=== PATIENT | female | born 1970 | race Caucasian/White ===

== ENCOUNTER → 2016-03-31 | Outpatient (CLI) | payer BC ==
--- NOTE | 2016-04-01 08:01 | MM ---
Reason for exam: screening (asymptomatic). Last mammogram was performed 1 year and 11 months ago. History: Patient had first child at age 32. Physical Findings: A clinical breast exam by your physician is recommended on an annual basis and results should be correlated with mammographic findings. MG 3D Screening Mammo W/Cad Bilateral CC and MLO view(s) were taken. Prior study comparison: April 19, 2014, bilateral MG diagnostic mammo w CAD ISABELA. December 15, 2012, bilateral digital screening mammo w/CAD. The breast tissue is heterogeneously dense. This may lower the sensitivity of mammography. There is no discrete abnormality. No significant changes when compared with prior studies. ASSESSMENT: Negative, BI-RAD 1 RECOMMENDATION: Routine screening mammogram of both breasts in 1 year.
== END | disposition home or self-care (01) ==
LOC: RADMAMWWP 07:28
PROVIDERS: ATTEND Obstetrics & Gynecology
DX: Z12.31 Encounter for screening mammogram for malignant neoplasm of breast (principal)
CPT/HCPCS: 77063; G0202

== ENCOUNTER → 2016-10-29 | Outpatient (CLI) | payer BC ==
--- NOTE | 2016-10-29 09:32 | USB ---
Reason for exam: clinical finding. History: Patient had first child at age 32. Indicated problem(s): palpable abnormality in the right breast. US Breast RT Right breast ultrasound includes all four quadrants, the retroareolar region and axilla. Finding demonstrates a 5 x 4 x 5mm cystic lesion at nipple just upper lateral correlates with palpable. These results were verbally communicated with the patient and result sheet given to the patient on 10/29/16. ASSESSMENT: Benign, BI-RAD 2 RECOMMENDATION: Return to routine screening mammogram schedule for both breasts. Back on schedule.
== END | disposition home or self-care (01) ==
LOC: RADUSWWP 08:19
PROVIDERS: ATTEND Internal Medicine
DX: N63 Unspecified lump in breast (principal)

== ENCOUNTER → 2017-03-14 | Outpatient (CLI) | payer BC ==
[2017-03-14 09:40] LABS: Basophils % (A) 0 %; Eosinophils # (A) 0.1 k/uL (0-0.7); Eosinophils % (A) 2 %; HGB 12.5 gm/dL (11.4-16.0); Lymphocytes # (A) 1.5 k/uL (1.0-4.8); Lymphocytes % (A) 29 %; MCH 28.7 pg (25.0-35.0); MCHC 32.8 g/dL (31.0-37.0); MCV 87.5 fL (80.0-100.0); Monocytes # (A) 0.3 k/uL (0-1.0); Monocytes % (A) 5 %; Neutrophils % (A) 61 %; Platelet Count 313 k/uL (150-450); RBC 4.35 m/uL (3.80-5.40); RDW 13.3 % (11.5-15.5)
[2017-03-14 09:51] LABS: Appearance,Urine Clear (Clear); Bilirubin,Urine Negative (Negative); Blood,Urine Negative (Negative); Color,Urine Yellow; Glucose,Urine (UA) Negative (Negative); Ketones,Urine Negative (Negative); Leukocyte Esterase,Urine Negative (Negative); Nitrite,Urine Negative (Negative); PH, Urine 7.5 (5.0-8.0); Protein,Urine Trace (Negative); Specific Gravity,Urine 1.015 (1.001-1.035); Urobilinogen,Urine <2.0 mg/dL (<2.0)
[2017-03-14 09:54] LABS: ALT 24 U/L (9-52); AST 19 U/L (14-36); Albumin 4.3 g/dL (3.5-5.0); Alkaline Phosphatase 57 U/L (38-126); Anion Gap 10 mmol/L; Blood Urea Nitrogen 14 mg/dL (7-17); Calcium 9.7 mg/dL (8.4-10.2); Carbon Dioxide 29 mmol/L (22-30); Chloride 102 mmol/L (98-107); Cholesterol 213 mg/dL (<200); Creatine Kinase 50 U/L (30-135); Glucose 84 mg/dL (74-99); HDL Cholesterol 85 mg/dL (40-60); LDL Cholesterol,Calculated 114 mg/dL (0-99); Potassium 4.6 mmol/L (3.5-5.1); Sodium 141 mmol/L (137-145); Total Bilirubin 0.4 mg/dL (0.2-1.3); Total Protein 7.1 g/dL (6.3-8.2); Triglycerides 71 mg/dL (<150)
[2017-03-14 10:10] LABS: T4, Free (Free Thyroxine) 0.99 ng/dL (0.78-2.19)
[2017-03-14 16:57] LABS: Hemoglobin A1C 5.3 % (4.0-6.0)
== END | disposition home or self-care (01) ==
LOC: LABWHC1 09:05
PROVIDERS: ATTEND Internal Medicine
DX: K20.0 Eosinophilic esophagitis (principal); E78.00 Pure hypercholesterolemia, unspecified
CPT/HCPCS: 36415; 80053; 80061; 81003; 82550; 83036; 84439; 84443; 85025

== ENCOUNTER → 2017-05-23 | Outpatient (CLI) | payer BC ==
[2017-05-23 08:11] LABS: Appearance,Urine Cloudy (Clear); Bilirubin,Urine Negative (Negative); Blood,Urine Negative (Negative); Color,Urine Yellow; Glucose,Urine (UA) Negative (Negative); Ketones,Urine Negative (Negative); Leukocyte Esterase,Urine Negative (Negative); Mucus,Urine Few /hpf; Nitrite,Urine Negative (Negative); PH, Urine 5.5 (5.0-8.0); Protein,Urine Trace (Negative); Squamous Epithelial Cell,Urine 9 /hpf (0-4); Urobilinogen,Urine <2.0 mg/dL (<2.0); WBC,Urine 4 /hpf (0-5)
[2017-05-23 08:16] LABS: Basophils % (A) 0 %; Eosinophils # (A) 0.1 k/uL (0-0.7); Eosinophils % (A) 2 %; HCT 36.9 % (34.0-46.0); HGB 11.7 gm/dL (11.4-16.0); Hypochromasia Slight; Lymphocytes # (A) 1.7 k/uL (1.0-4.8); Lymphocytes % (A) 27 %; MCH 26.7 pg (25.0-35.0); MCHC 31.7 g/dL (31.0-37.0); MCV 84.3 fL (80.0-100.0); Mean Platelet Volume 7.5; Monocytes # (A) 0.3 k/uL (0-1.0); Monocytes % (A) 5 %; Neutrophils % (A) 65 %; Platelet Count 381 k/uL (150-450); RBC 4.37 m/uL (3.80-5.40); RDW 14.4 % (11.5-15.5); WBC 6.2 k/uL (3.8-10.6)
[2017-05-23 08:30] LABS: ALT 19 U/L (9-52); AST 16 U/L (14-36); Albumin 4.4 g/dL (3.5-5.0); Alkaline Phosphatase 53 U/L (38-126); Anion Gap 13 mmol/L; Blood Urea Nitrogen 16 mg/dL (7-17); Calcium 10.2 mg/dL (8.4-10.2); Carbon Dioxide 28 mmol/L (22-30); Chloride 103 mmol/L (98-107); Cholesterol 216 mg/dL (<200); Creatine Kinase 47 U/L (30-135); Glucose 87 mg/dL (74-99); HDL Cholesterol 87 mg/dL (40-60); LDL Cholesterol,Calculated 116 mg/dL (0-99); Potassium 4.8 mmol/L (3.5-5.1); Sodium 144 mmol/L (137-145); Total Bilirubin 0.7 mg/dL (0.2-1.3); Total Protein 7.4 g/dL (6.3-8.2); Triglycerides 65 mg/dL (<150)
[2017-05-23 08:45] LABS: T4, Free (Free Thyroxine) 0.78 ng/dL (0.78-2.19)
[2017-05-23 17:50] LABS: Hemoglobin A1C 5.2 % (4.0-6.0)
== END | disposition home or self-care (01) ==
LOC: LABWHC1 07:39
PROVIDERS: ATTEND Internal Medicine
DX: Z00.00 Encounter for general adult medical examination without abnormal findings (principal); K20.0 Eosinophilic esophagitis; E78.00 Pure hypercholesterolemia, unspecified
CPT/HCPCS: 36415; 80053; 80061; 81001; 82550; 83036; 84439; 84443; 85025

== ENCOUNTER → 2017-06-03 | Outpatient (CLI) | payer BC ==
--- NOTE | 2017-06-03 11:00 | MM ---
Reason for exam: additional evaluation requested from prior study. Last mammogram was performed 1 year and 2 months ago. History: Patient had first child at age 32. Physical Findings: Nurse Summary: 0.5 x 0.5cm nodule in the right breat at 6 o'clock and 9 o'clock (nurse ts). MG 3D Diag Mammo W/Cad ISABELA Bilateral CC and MLO view(s) were taken. Prior study comparison: March 31, 2016, bilateral MG 3d screening mammo w/cad. April 19, 2014, bilateral MG diagnostic mammo w CAD ISABELA. The breast tissue is extremely dense which could obscure a lesion on mammography. There is chronic nodularity in the right breast. Asymmetric breast tissue left breast near axilla, stable. There is no discrete abnormality. These results were verbally communicated with the patient and result sheet given to the patient on 06/03/17. ASSESSMENT: Incomplete: need additional imaging evaluation, BI-RAD 0 RECOMMENDATION: Ultrasound of the right breast. (palpable by nurse and prior abnormality)
--- NOTE | 2017-06-03 11:04 | USB ---
Reason for exam: additional evaluation requested from abnormal screening. History: Patient had first child at age 32. US Breast RT Right breast ultrasound includes all four quadrants, the retroareolar region and axilla. Finding demonstrates a 0.3 x 0.3 x 0.2cm oval, cystic lesion at 6 o'clock, a 0.3 x 0.8 x 0.4cm oval cystic cluster too small to characterize, septated cyst at 6 o'clock, ductal ectasia at 6 o'clock, a 0.3 x 0.3 x 0.2cm oval, cystic lesion at 8 o'clock, a 0.4 x 0.4 x 0.3cm oval, cystic lesion at 8:30, duct ectasia at 8:30, a 0.3 x 0.5 x 0.2cm oval, cystic lesion at 10 o'clock, a 0.5 x 0.5 x 0.4cm cystic lesion at 11 o'clock and ductal ectasia at the nipple. Fibrocystic change. These results were verbally communicated with the patient and result sheet given to the patient on 06/03/17. ASSESSMENT: Benign, BI-RAD 2 RECOMMENDATION: Follow-up diagnostic mammogram of both breasts in 1 year.
== END | disposition home or self-care (01) ==
LOC: RADMAMWWP 08:19
PROVIDERS: ATTEND Obstetrics & Gynecology
DX: R92.8 Other abnormal and inconclusive findings on diagnostic imaging of breast (principal); N60.09 Solitary cyst of unspecified breast
CPT/HCPCS: 77066; 76641; G0279

== ENCOUNTER → 2018-06-09 | Outpatient (CLI) | payer BC ==
--- NOTE | 2018-06-09 14:01 | MM ---
Reason for exam: additional evaluation requested from prior study. Last mammogram was performed 1 year ago. History: Patient had first child at age 32. Physical Findings: Nurse Summary: 1cm nodule in the right breast at 9 o'clock (nurse lawanda). MG 3D Diag Mammo W/Cad ISABELA Bilateral CC, MLO, and XCCL view(s) were taken. Prior study comparison: June 03, 2017, bilateral MG 3d diag mammo w/cad ISABELA. March 31, 2016, bilateral MG 3d screening mammo w/cad. The breast tissue is heterogeneously dense. This may lower the sensitivity of mammography. No significant new findings when compared with previous films. These results were verbally communicated with the patient and result sheet given to the patient on 06/09/18. ASSESSMENT: Benign, BI-RAD 2 RECOMMENDATION: Routine screening mammogram of both breasts in 1 year.
== END | disposition home or self-care (01) ==
LOC: RADMAMWWP 13:06
PROVIDERS: ATTEND Obstetrics & Gynecology
DX: R92.8 Other abnormal and inconclusive findings on diagnostic imaging of breast (principal)
CPT/HCPCS: 77062; 77066

== ENCOUNTER → 2018-09-22 | Outpatient (CLI) | payer BC ==
[2018-09-22 09:28] LABS: Amorphous Sediment,Urine Rare /hpf; Appearance,Urine Cloudy (Clear); Bacteria,Urine Rare /hpf; Bilirubin,Urine Negative (Negative); Blood,Urine Negative (Negative); Color,Urine Light Yellow; Glucose,Urine (UA) Negative (Negative); Ketones,Urine Negative (Negative); Leukocyte Esterase,Urine Negative (Negative); Mucus,Urine Rare /hpf; Nitrite,Urine Negative (Negative); PH, Urine 6.5 (5.0-8.0); Protein,Urine Negative (Negative); RBC,Urine 4 /hpf (0-5); Specific Gravity,Urine 1.014 (1.001-1.035); Squamous Epithelial Cell,Urine 5 /hpf (0-4); Urobilinogen,Urine <2.0 mg/dL (<2.0); WBC,Urine 2 /hpf (0-5)
[2018-09-22 09:29] LABS: Anisocytosis Slight; Basophils % (A) 0 %; Eosinophils # (A) 0.1 k/uL (0-0.7); Eosinophils % (A) 1 %; HCT 36.4 % (34.0-46.0); HGB 11.3 gm/dL (11.4-16.0); Hypochromasia Slight; Lymphocytes # (A) 1.4 k/uL (1.0-4.8); Lymphocytes % (A) 25 %; MCH 27.4 pg (25.0-35.0); MCHC 31.2 g/dL (31.0-37.0); MCV 87.9 fL (80.0-100.0); Mean Platelet Volume 7.7; Monocytes # (A) 0.3 k/uL (0-1.0); Monocytes % (A) 5 %; Neutrophils # (A) 3.8 k/uL (1.3-7.7); Neutrophils % (A) 67 %; Platelet Count 263 k/uL (150-450); RBC 4.14 m/uL (3.80-5.40); RDW 16.5 % (11.5-15.5); WBC 5.7 k/uL (3.8-10.6)
[2018-09-22 17:15] LABS: African American GFR (CKD) 100.3 (60.0-200.0); Albumin 4.6 g/dL (3.80-4.90); Albumin/Globulin Ratio 2.09 (1.60-3.17); Anion Gap 9.5 mmol/L (4.00-12.00); BUN/Creat Ratio 16.25 Ratio (12.00-20.00); Calcium 9.4 mg/dL (8.7-10.3); Carbon Dioxide 23.5 mmol/L (21.6-31.8); Globulin 2.2 g/dL (1.6-3.3); LDL Cholesterol,Calculated 108.4 mg/dL (0.0-131.0); Potassium 4.5 mmol/L (3.5-5.5); Total Bilirubin 1.1 mg/dL (0.2-1.2); Total Protein 6.8 g/dL (6.2-8.2); VLDL Calculation 13.6 mg/dL (5.00-40.00)
[2018-09-22 17:25] LABS: T4, Free (Free Thyroxine) 1.1 ng/dL (0.80-1.80)
[2018-09-22 21:43] LABS: Hemoglobin A1C 5.7 % (4.0-6.0)
== END | disposition home or self-care (01) ==
LOC: LABWHC1 08:48
PROVIDERS: ATTEND Internal Medicine
DX: E03.9 Hypothyroidism, unspecified (principal); I10 Essential (primary) hypertension
CPT/HCPCS: 36415; 80053; 80061; 81001; 83036; 84439; 84443; 85025

== ENCOUNTER → 2018-09-29 | Outpatient (CLI) | payer BC ==
--- NOTE | 2018-09-29 09:33 | BD ---
EXAMINATION TYPE: Axial Bone Density DATE OF EXAM: 09/29/2018 COMPARISON: NONE CLINICAL HISTORY: M 84.9 Height: 5 FT 3 1/2 IN Weight: 116 FRAX RISK QUESTIONS: Glucocorticoids (More than 3mos): YES (Ex: prednisone, prednisolone, methylprednisolone, dexamethasone, and hydrocortisone). Secondary Osteoporosis: RISK FACTORS HISTORY OF: Family History of Osteoporosis: YES Active: YES Postmenopausal woman: If Premenopausal, do you have irregular periods: Take estrogen and/or progesterone medications: SINCE JUNE 2018 ESTROGEN VAGINAL, TESTERONE CREAM MEDICATIONS: Prednisone or other steroids: YES How Lon YEARS Thyroid Medications: YES Which medication: LEVOTHYROXINE How Lon YEAR Additional Medications: LEVOTHYROXINE, LISINOPRIL, BYSTOLIC, PULMICORT, PREVACID, VALTREX Additional History: CHRONIC ESOPHAGITIS EXAM MEASUREMENTS: Bone mineral densitometry was performed using the [employer]. Bone mineral density as measured about the Lumbar spine is: ----- L1-L4(G/cm2): 1.211 T Score Values are as follows: ----- L2: 0.3 ----- L3: 0.2 ----- L4: 0.0 ----- L1-L4: 0.3 BASELINE Bone mineral density about the R hip (g/cm2): 1.106 Bone mineral density about the L hip (g/cm2): 1.104 T Score values are as follows: -----R Neck: 0.5 -----L Neck: 0.5 -----R Total: 0.8 -----L Total: 0.7 BASELINE IMPRESSION: Normal (Values between +1 and -1 indicate normal bone mass). Consider repeating this study in 5 year s or sooner if there is some new clinical indication. NOTE: T-SCORE=SD OF THE YOUNG ADULT MEAN.
== END | disposition home or self-care (01) ==
LOC: RADBDWWP 08:34
PROVIDERS: ATTEND Internal Medicine
DX: M85.9 Disorder of bone density and structure, unspecified (principal)
CPT/HCPCS: 77080

== ENCOUNTER → 2018-12-29 | Outpatient (CLI) | payer BC ==
--- NOTE | 2018-12-29 11:04 | US ---
EXAMINATION TYPE: US thyroid st tissue head/neck DATE OF EXAM: 12/29/2018 COMPARISON: NONE CLINICAL HISTORY: E03.9 Hypothyroidism. Hypothyroidism GLAND SIZE: Right Lobe: 4.3 x 1.2 x 1.2 cm Overall Parenchyma: homogenous Left Lobe: 3.7 x 0.9 x 1.1 cm Overall Parenchyma: homogeneous Isthmus Thickness: 0.2 cm NODULES RIGHT: # of nodules measured on right: 0 - sub-centimeter cystic area noted LEFT: # of nodules measured on left: 0 ISTHMUS: # of nodules measured in the isthmus: 0 Bilateral neck scanned, normal appearing lymph nodes right neck IMPRESSION: Upper limits of normal size of the nearly homogeneous thyroid gland other than a subcenti meter right thyroid lobe cyst.
== END | disposition home or self-care (01) ==
LOC: RADUSWWP 09:36
PROVIDERS: ATTEND Internal Medicine
DX: E04.1 Nontoxic single thyroid nodule (principal); E03.9 Hypothyroidism, unspecified
CPT/HCPCS: 76536

== ENCOUNTER → 2019-07-10 | Outpatient (CLI) | payer BC ==
--- NOTE | 2019-07-10 11:28 | MM ---
Reason for exam: clinical finding. Last mammogram was performed 1 year and 1 month ago. History: Patient had first child at age 32. Indicated problem(s): palpable abnormality in the right breast. Physical Findings: Nurse Summary: 1 x 1cm nodule in the right breast at 8 o'clock and 10 o'clock (nurse ts). MG 3D Diag Mammo W/Cad ISABELA Bilateral CC and MLO view(s) were taken. Prior study comparison: June 09, 2018, bilateral MG 3d diag mammo w/cad ISABELA. June 03, 2017, bilateral MG 3d diag mammo w/cad ISABELA. March 31, 2016, bilateral MG 3d screening mammo w/cad. The breast tissue is heterogeneously dense. This may lower the sensitivity of mammography. No significant new findings when compared with previous films. These results were verbally communicated with the patient and result sheet given to the patient on 07/10/19. ASSESSMENT: Incomplete: need additional imaging evaluation, BI-RAD 0 RECOMMENDATION: Ultrasound of the right breast.
--- NOTE | 2019-07-10 11:32 | USB ---
Reason for exam: clinical finding. History: Patient had first child at age 32. Indicated problem(s): palpable abnormality in the right breast. US Breast RT Technologist: Fabiana Bingham Right complete breast ultrasound includes all four quadrants, the retroareolar region and axilla. Finding demonstrates a 0.4 x 0.3 x 0.2cm oval, cystic lesion at 4 o'clock, a 0.2 x 0.3 x 0.2cm circular lesion too small to characterize at 7 o'clock, a 0.4 x 0.4 x 0.4cm circular, cystic lesion at 8 o'clock, a 0.6 x 0.6 x 0.4cm hypoechoic lesion at 8 o'clock, biopsy recommended and a 0.4 x 0.4 x 0.4cm circular lesion with interval echoes at 12 o'clock, biopsy/aspiration recommended. These results were verbally communicated with the patient and result sheet given to the patient on 07/10/19. ASSESSMENT: Suspicious, BI-RAD 4 RECOMMENDATION: Ultrasound core biopsy of the right breast. (x 2) Called Dr. Blair's office with mammographic findings and has scheduled an appointment for the patient with Dr. Franco. Biopsy scheduled for 07/27/19 at 11:30. PRELIMINARY REPORT CALLED AND FAXED TO DR. FRANCO ON 07/10/19.
== END | disposition home or self-care (01) ==
LOC: RADMAMWWP 09:11
PROVIDERS: ATTEND Obstetrics & Gynecology
DX: N64.4 Mastodynia (principal)
CPT/HCPCS: 77062; 77066

== ENCOUNTER → 2019-07-27 | Day surgery (SDC) | payer BC ==
[2019-07-27 11:06] VITALS: BP 130/82; PULSE 56; RESP 16; TEMP 98.1
--- NOTE | 2019-07-27 18:41 | USB ---
EXAMINATION TYPE: US discontinued breast core RT DATE OF EXAM: 07/27/2019 Comparison: 07/10/2019 Clinical History: 49-year-old female referred for 2 sites ultrasound-guided right breast core needle biopsy after presenting for palpable abnormalities. Findings: First, attention was brought to the 8:00 site. Some areas of heterogeneous tissue are present but the previous 6 x 6 x 4 mm solid appearing lesion at zone B/C could not be reproduced. Six-month follow-u p ultrasound is recommended to reassess this region. Next, attention was brought to the 12:00 palpable site which currently shows a round, circumscribed 5 x 4 x 4 mm cyst with minimal internal debris and posterior through transmission. Biopsy is deferred for this benign finding. Findings and impression were discussed with the patient. IMPRESSION: 2 site right breast ultrasound-guided core needle biopsy deferred. The 8:00 site could not be reprodu francisca at the 12:00 site now has the appearance of a 5 mm benign cyst with minimal internal debris. BI-RADS 3, probably benign RECOMMENDATION: 1. Six-month follow-up right breast ultrasound for reassessment of the 8:00 site, zone B/C. Ultrasoun d can reassess the 12:00 site, mildly complicated cyst as a precautionary measure at that time. 2. Patient should continue monthly self breast exam. 3. This exam should not preclude additional follow-up of suspicious palpable abnormalities.
== END ==
LOC: RADUSWWP 10:34
PROVIDERS: ATTEND Surgery
DX: N63.10 Unspecified lump in the right breast, unspecified quadrant (principal); Z53.9 Procedure and treatment not carried out, unspecified reason; Z88.1 Allergy status to other antibiotic agents; Z91.09 Other allergy status, other than to drugs and biological substances

== ENCOUNTER → 2020-03-18 | Outpatient (CLI) | payer BC ==
--- NOTE | 2020-03-18 09:18 | USB ---
Reason for exam: follow-up at short interval from prior study. History: Patient had first child at age 32. US discontinued breast core RT of the right breast, July 27, 2019. Physical Findings: Nurse did not find any significant physical abnormalities on exam. US Breast Limited RT Right limited breast ultrasound including focal area of concern, retroareolar and axilla demonstrates a 0.4 x 0.4 x 0.5cm lesion too small to characterize at 8 o'clock, a 0.4 x 0.3 x 0.4cm lesion too small to characterize at 8 o'clock and a 0.4 x 0.4 x 0.4cm mixed lesion at 12 o'clock. These results were verbally communicated with the patient and result sheet given to the patient on 03/18/20. ASSESSMENT: Probably benign, BI-RAD 3 RECOMMENDATION: Follow-up diagnostic mammogram of both breasts in 6 months. Ultrasound of the right breast in 6 months.
== END | disposition home or self-care (01) ==
LOC: RADUSWWP 07:53
PROVIDERS: ATTEND Obstetrics & Gynecology
DX: R92.8 Other abnormal and inconclusive findings on diagnostic imaging of breast (principal)

== ENCOUNTER → 2020-10-17 | Outpatient (CLI) | payer BC ==
--- NOTE | 2020-10-17 15:03 | MM ---
Reason for exam: additional evaluation requested from prior study. Last mammogram was performed 1 year and 3 months ago. History: Patient had first child at age 32. US discontinued breast core RT of the right breast, July 27, 2019. Physical Findings: Nurse Summary: 1cm nodule in the right breast at 12 o'clock (nurse dw). MG 3D Diag Mammo W/Cad ISABELA Bilateral CC and MLO view(s) were taken. XCCL view(s) were taken of the right breast. Prior study comparison: July 10, 2019, bilateral MG 3d diag mammo w/cad ISABELA. June 09, 2018, bilateral MG 3d diag mammo w/cad ISABELA. June 03, 2017, bilateral MG 3d diag mammo w/cad ISABELA. The breast tissue is extremely dense which could obscure a lesion on mammography. Focal asymmetry right CC, not on XCCL or MLO. These results were verbally communicated with the patient and result sheet given to the patient on 10/17/20. ASSESSMENT: Incomplete: need additional imaging evaluation, BI-RAD 0 RECOMMENDATION: Ultrasound of the right breast.
--- NOTE | 2020-10-17 15:05 | USB ---
Reason for exam: additional evaluation requested from abnormal screening. History: Patient had first child at age 32. US discontinued breast core RT of the right breast, July 27, 2019. US Breast RT Right complete breast ultrasound includes all four quadrants, the retroareolar region and axilla. Finding demonstrates a 0.4 x 0.4 x 0.4cm cystic lesion at 12 o'clock, a 0.4 x 0.4 x 0.6cm cystic lesion at 8 o'clock and ductal ectasia at the posterior nipple. These results were verbally communicated with the patient and result sheet given to the patient on 10/17/20. ASSESSMENT: Benign, BI-RAD 2 RECOMMENDATION: Routine screening mammogram of both breasts in 1 year. Manage on a clinical basis with regard to palpable.
== END | disposition home or self-care (01) ==
LOC: RADMAMWWP 13:02
PROVIDERS: ATTEND Obstetrics & Gynecology
DX: N60.01 Solitary cyst of right breast (principal); N60.41 Mammary duct ectasia of right breast
CPT/HCPCS: 77062; 77066

== ENCOUNTER → 2021-10-13 | Outpatient (CLI) | payer OTHER ==
--- NOTE | 2021-10-13 14:56 | MM ---
Reason for Exam: Additional evaluation requested from abnormal screening. Last screening mammogram was performed 11 month(s) ago. Patient History: Menarche at age 12. First Full-Term at age 32. Late child-bearing (after 30). 07/27/2019, US discontinued breast core RT on the right side. Risk Values: Rukhsana 5 year model risk: 1.5%. NCI Lifetime model risk: 11.8%. Tissue Density: The breast tissue is heterogeneously dense. This may lower the sensitivity of mammography. Findings: Analyzed By CAD. No new suspicious mass or worrisome clustered microcalcifications identified. No significant change from prior examination. No focal abnormality in the left breast in the patient's region of concern. No new suspicious mass or worrisome clustered microcalcifications identified. No significant change from prior examination. No focal abnormality in the left breast in the patient's region of concern at 2:00. Overall Assessment: Incomplete: need additional imaging evaluation, BI-RAD 0 Management: Diagnostic Breast Ultrasound of the left breast. A clinical breast exam by your physician is recommended on an annual basis and results should be correlated with mammographic findings. This exam should not preclude additional follow-up of suspicious palpable abnormalities. Results were given to the patient verbally at the time of exam. Electronically signed and approved by: Tim Arango D.O.
--- NOTE | 2021-10-13 15:41 | USB ---
Reason for Exam: Clinical finding. Patient History: Menarche at age 12. First Full-Term at age 32. Late child-bearing (after 30). 07/27/2019, US discontinued breast core RT on the right side. Risk Values: Rukhsana 5 year model risk: 1.5%. NCI Lifetime model risk: 11.8%. Technique: Method: Targeted. Prior Study Comparison: 06/09/2018 Bilateral Diagnostic Mammogram, [facility]. 07/10/2019 Bilateral Diagnostic Mammogram, [facility]. 10/17/2020 Bilateral Diagnostic Mammogram, [facility]. Findings: The upper outer quadrant of the left breast, the axilla of the left breast and the retroareolar of the left breast were scanned. No solid or cystic masses are identified. Dense breast tissue demonstrated. Overall Assessment: Benign, BI-RAD 2 Management: Screening Mammogram of both breasts in 1 year. A clinical breast exam by your physician is recommended on an annual basis and results should be correlated with mammographic findings. Electronically signed and approved by: Tim Arango D.O.
== END | disposition home or self-care (01) ==
LOC: RADMAMWWP 14:23
PROVIDERS: ATTEND Obstetrics & Gynecology
DX: N64.4 Mastodynia (principal); R92.8 Other abnormal and inconclusive findings on diagnostic imaging of breast
CPT/HCPCS: 77062; 77066